=== PATIENT | male | born 1995 | race Caucasian/White ===

== ENCOUNTER 2020-07-07 14:15 | Outpatient (REF) | payer MEDICAID, SELFPAY | END 2020-07-07 14:16 | disposition home or self-care (01) | LOC: HO.HAP 14:15 | PROVIDERS: PCP Internal Medicine Geriatric Medicine; Referring Provider Internal Medicine Geriatric Medicine; Visit Provider Internal Medicine Geriatric Medicine | DX: Z46.1 Encounter for fitting and adjustment of hearing aid (principal) | CPT/HCPCS: V5011; V5020; V5241; V5257; V5266 ==